=== PATIENT | female | born 1945 | race Caucasian/White ===

== ENCOUNTER 2020-07-31 09:41 | Inpatient (IN) | payer MEDICARE, BC ==
[~2020-07-31] VITALS: Ht 149.9 cm; Wt 101.0 kg
[2020-07-31] MEDS ORDERED: ECOTRIN81 MG PO (16:17)
[2020-07-31] MEDS ORDERED: SYMBICORT 16010.2 GM INH (16:17)
[2020-07-31] MEDS ORDERED: COREG6.25 MG PO (16:18)
[2020-07-31] MEDS ORDERED: COLACE 100MG C100 MG PO (16:18)
[2020-07-31] MEDS ORDERED: CLOPIDOGREL75 MG PO (16:18)
[2020-07-31] MEDS ORDERED: NEXIUM40 MG PO (16:19)
[2020-07-31] MEDS ORDERED: LEXAPRO10 MG PO (16:19)
[2020-07-31] MEDS ORDERED: FLONASE ALLER15.8 ML (16:19)
[2020-07-31] MEDS ORDERED: LASIX40 MG PO (16:20)
[2020-07-31] MEDS ORDERED: MUCINEX600 MG PO (16:21)
[2020-07-31] MEDS ORDERED: ATROVENT-HFA12.9 GM INH (16:21)
[2020-07-31] MEDS ORDERED: SYNTHROID25 MCG PO (16:22)
[2020-07-31] MEDS ORDERED: MULTIPLE VITAM1 EACH PO (16:22)
[2020-07-31] MEDS ORDERED: COZAAR50 MG PO (16:22)
[2020-07-31] MEDS ORDERED: OMEGA 3 1,0001 EACH PO (16:23)
[2020-07-31] MEDS ORDERED: SYSTANE 0.3-0.1 EACH OP (16:24)
[2020-07-31] MEDS ORDERED: K-DUR TAB 20 M20 MEQ PO (16:25)
[2020-07-31] MEDS ORDERED: CRESTOR20 MG PO (16:25)
[2020-07-31] MEDS ORDERED: NASAL SPRAY44 ML (16:27)
[2020-07-31] MEDS ORDERED: SPIRIVA HANDIH18 MCG INH (16:28)
[2020-07-31] MEDS ORDERED: VITAMIN B-121000 MCG PO (16:28)
[2020-07-31] MEDS ORDERED: VITAMIN D21250 MCG PO (16:30)
[2020-07-31 17:20] LABS: HEMOGLOBIN 8.1 gm/dl (12.3-15.3); RED BLOOD COUNT 3.17 M/UL (4.00-5.10); WHITE BLOOD COUNT 20.2 K/UL (4.5-11.0)
[2020-07-31 18:22] LABS: BORDETELLA PARAPERTUSSIS Not Detected (Not Detectd); BORDETELLA PERTUSSIS Not Detected (Not Detectd); CHLAMYDIA PNEUMONIAE Not Detected (Not Detectd); CORONAVIRUS HKU1 Not Detected (Not Detectd); CORONAVIRUS NL63 Not Detected (Not Detectd); CORONAVIRUS OC43 Not Detected (Not Detectd); CORONOAVIRUS 229E Not Detected (Not Detectd); HUMAN METAPNEUMOVIRUS Not Detected (Not Detectd); HUMAN RHINOVIRUS/ENTEROVIRUS Not Detected (Not Detectd); INFLUENZA A Not Detected (Not Detectd); INFLUENZA B Not Detected (Not Detectd); MYCOPLASMA PNEUMONIAE Not Detected (Not Detectd); PARAINFLUENZA VIRUS 1 Not Detected (Not Detectd); PARAINFLUENZA VIRUS 2 Not Detected (Not Detectd); PARAINFLUENZA VIRUS 3 Not Detected (Not Detectd); PARAINFLUENZA VIRUS 4 Not Detected (Not Detectd); RESPIRATORY SYNCYTIAL VIRUS Not Detected (Not Detectd)
[2020-07-31 19:44] LABS: SARS-CoV-2 NOT DETECTED (Not Detectd)
[2020-08-01 07:23] LABS: HEMOGLOBIN 7.2 gm/dl (12.3-15.3)
[2020-08-01 07:25] LABS: RED BLOOD COUNT 2.81 M/UL (4.00-5.10)
[2020-08-02 04:55] LABS: HEMOGLOBIN 7.9 gm/dl (12.3-15.3); RED BLOOD COUNT 2.92 M/UL (4.00-5.10); WHITE BLOOD COUNT 12.5 K/UL (4.5-11.0)
[2020-08-03 04:58] LABS: HEMOGLOBIN 7.9 gm/dl (12.3-15.3); WHITE BLOOD COUNT 10.9 K/UL (4.5-11.0)
[2020-08-03 05:19] LABS: BUN/CREATININE RATIO 32 (0-10)
[2020-08-04 05:27] LABS: HEMOGLOBIN 7.6 gm/dl (12.3-15.3); RED BLOOD COUNT 2.87 M/UL (4.00-5.10)
[2020-08-04 05:51] LABS: BUN/CREATININE RATIO 28 (0-10)
[2020-08-05 06:55] LABS: HEMOGLOBIN 7.7 gm/dl (12.3-15.3); RED BLOOD COUNT 2.91 M/UL (4.00-5.10)
[2020-08-05 06:57] LABS: WHITE BLOOD COUNT 15.1 K/UL (4.5-11.0)
[2020-08-05 07:23] LABS: BUN/CREATININE RATIO 26 (0-10)
[2020-08-06 05:39] LABS: HEMOGLOBIN 7.5 gm/dl (12.3-15.3); RED BLOOD COUNT 2.84 M/UL (4.00-5.10); WHITE BLOOD COUNT 16.5 K/UL (4.5-11.0)
[2020-08-06 06:13] LABS: BUN/CREATININE RATIO 29 (0-10)
[2020-08-06 11:22] LABS: BUN/CREATININE RATIO 29 (0-10)
[2020-08-07 05:04] LABS: RED BLOOD COUNT 2.63 M/UL (4.00-5.10); WHITE BLOOD COUNT 15.6 K/UL (4.5-11.0)
[2020-08-07 05:22] LABS: BUN/CREATININE RATIO 33 (0-10)
[2020-08-08 05:06] LABS: HEMOGLOBIN 8.9 gm/dl (12.3-15.3); WHITE BLOOD COUNT 17.4 K/UL (4.5-11.0)
[2020-08-08 05:09] LABS: RED BLOOD COUNT 3.31 M/UL (4.00-5.10)
[2020-08-08 05:19] LABS: BUN/CREATININE RATIO 37 (0-10)
== END 2020-08-09 15:02 | disposition expired | DRG 207 ==
LOC: CCU 16:06
PROVIDERS: Internal Medicine; Internal Medicine Infectious Disease; ADMIT Family Medicine
PROC: 0BH17EZ Insertion of Endotracheal Airway into Trachea, Via Natural or Artificial Opening (ICD-10-PCS; principal; 2020-07-31)
PROC: 5A1955Z Respiratory Ventilation, Greater than 96 Consecutive Hours (ICD-10-PCS; 2020-07-31)
PROC: 0DH67UZ Insertion of Feeding Device into Stomach, Via Natural or Artificial Opening (ICD-10-PCS; 2020-07-31)
PROC: 3E0G76Z Introduction of Nutritional Substance into Upper GI, Via Natural or Artificial Opening (ICD-10-PCS; 2020-07-31)
PROC: 30233N1 Transfusion of Nonautologous Red Blood Cells into Peripheral Vein, Percutaneous Approach (ICD-10-PCS; 2020-08-07)
DX: J96.21 Acute and chronic respiratory failure with hypoxia (principal); J18.9 Pneumonia, unspecified organism; I21.A1 Myocardial infarction type 2; G92 Toxic encephalopathy; I50.33 Acute on chronic diastolic (congestive) heart failure; N30.00 Acute cystitis without hematuria; E87.2 Acidosis; R57.9 Shock, unspecified; E66.2 Morbid (severe) obesity with alveolar hypoventilation; G93.1 Anoxic brain damage, not elsewhere classified; I50.32 Chronic diastolic (congestive) heart failure; J96.01 Acute respiratory failure with hypoxia; J96.22 Acute and chronic respiratory failure with hypercapnia; Z66 Do not resuscitate; Z51.5 Encounter for palliative care; I46.9 Cardiac arrest, cause unspecified; I27.20 Pulmonary hypertension, unspecified; D64.9 Anemia, unspecified; I48.0 Paroxysmal atrial fibrillation; M19.90 Unspecified osteoarthritis, unspecified site; I10 Essential (primary) hypertension; J44.9 Chronic obstructive pulmonary disease, unspecified; E03.9 Hypothyroidism, unspecified; M81.0 Age-related osteoporosis without current pathological fracture; I11.0 Hypertensive heart disease with heart failure; I25.10 Atherosclerotic heart disease of native coronary artery without angina pectoris; E78.5 Hyperlipidemia, unspecified; B96.89 Other specified bacterial agents as the cause of diseases classified elsewhere; D72.829 Elevated white blood cell count, unspecified; T42.75XA Adverse effect of unspecified antiepileptic and sedative-hypnotic drugs, initial encounter; Z20.822 Contact with and (suspected) exposure to COVID-19; I44.7 Left bundle-branch block, unspecified; E87.6 Hypokalemia; Z79.01 Long term (current) use of anticoagulants; Z99.81 Dependence on supplemental oxygen; Z79.899 Other long term (current) drug therapy; Z79.82 Long term (current) use of aspirin; Z88.6 Allergy status to analgesic agent; Z88.5 Allergy status to narcotic agent; Z88.2 Allergy status to sulfonamides; Z88.8 Allergy status to other drugs, medicaments and biological substances; Z87.891 Personal history of nicotine dependence; Z86.711 Personal history of pulmonary embolism; Z86.718 Personal history of other venous thrombosis and embolism
CPT/HCPCS: ECHO; 36415; 36430; 36600; 70450; 71045; 80048; 80053; 80202; 81001; 82550; 82553; 82607; 82728; 82746; 82803; 82962; 83540; 83550; 83605; 83735; 83880; 84100; 84132; 84443; 84484; 85025; 85027; 85610; 85730; 86850; 86900; 86901; 86920; 87040; 87070; 87086; 87205; 87633; 93005; 93306; 94002; 94003; 94640; 94760; 95819; A6212; C9113; J0360; J0696; J1205; J1644; J1650; J1940; J2060; J2270; J2543; J2704; J2930; J3370; J7030; J7040; J7070; P9016